=== PATIENT | male | born 1990 | race Caucasian/White ===

== ENCOUNTER 2020-01-21 22:29 | Emergency (ER) | payer MEDICAID, SELFPAY ==
[2020-01-21 22:35] VITALS: BP 152/89; PULSE 78; RESP 16; TEMP 36.8; O2SAT 98; BMI 29.2
--- NOTE | 2020-01-21 22:54 | W.ED.WOUNDLC ---
HPI - Wound/Laceration General: Chief Complaint: Wound/Laceration Stated Complaint: finger pain Time Seen by Provider: 01/21/20 22:54 Source: patient Mode of arrival: ambulatory Limitations: no limitations History of Present Illness: HPI narrative: Patient comes in with a superficial laceration to the third finger on the right hand. Patient reports was removing some glass and accidentally cut himself with a shard of the glass. Patient's last tetanus was last year. Patient appears well. Patient appears in no acute distress. Review of Systems General: Reports: 10 or more systems reviewed and unremarkable except in HPI and below Skin/Breast: Reports: other (finger laceration) [facility] ED PFSH: Social History (Updated 01/06/20 @ 12:11 by Amber Martinez LPN) Smoking and tobacco status: former smoker Alcohol intake: never Physical Exam Const: COMMON NORMALS: no apparent distress and oriented x3 GENERAL APPEARANCE: cooperative HENMT: COMMON NORMALS: normocephalic, TM's normal bilaterally and external nose normal HEAD & SCALP: normal to inspection and normocephalic NOSE: external nose normal TYMPANIC MEMBRANE: TM's normal bilaterally MOUTH: oral and palatal mucosa normal THROAT: posterior oropharynx normal Eye: GENERAL EYE: normal appearance of both eyes Neck/C-Spine: COMMON NORMALS: full ROM Lymph: LYMPHATIC: no lymphadenopathy noted Chest: COMMONS NORMALS: inspection of chest normal Resp: COMMON NORMALS: normal respiratory effort EFFORT & INSPECTION: Yes able to speak in complete sentences Cardio: COMMON NORMALS: regular rate and regular rhythm RATE: regular rate RHYTHM: regular rhythm GI: COMMON NORMALS: non-tender : COMMON NORMALS: Yes no CVA tenderness BLADDER/KIDNEY EXAM: Yes no CVA tenderness Back/Pelvis: COMMON NORMALS: no CVA tenderness and thoracic and lumbar spine normal to inspection Extremity: COMMON NORMALS: normal to inspection Neuro: COMMON NORMALS: oriented x3 and moves all extremities Psych: COMMON NORMALS: mental status grossly normal and cooperative Skin: NARRATIVE SKIN EXAM: Superficial laceration noted to the ulnar aspect of the distal volar third finger. No foreign body was noted. No fracture was noted. Laceration was well approximated with minimal bleeding. Course Vital Signs: Vital signs: Vital Signs Temperature 98.2 F 01/21/20 22:35 Pulse Rate 78 01/21/20 22:35 Respiratory Rate 16 01/21/20 22:35 Blood Pressure 152/89 01/21/20 22:35 Pulse Oximetry 98 01/21/20 22:35 MDM - Wound/Laceration MDM Narrative: Medical decision making narrative: Patient comes in today with concerns for laceration to the third finger on the right hand. Exam of the laceration notes no foreign body or fracture of the finger. Normal tendon function. No nail damage was noted. Reviewed exam with patient recommended treatment with dressing and keeping wound clean and dry. Instructed on monitoring for infection and to return to the ER as needed. Patient reported understanding agreed to plan. Discharge Plan Discharge Patient Disposition: Home, Self-Care Clinical Impression: Superficial laceration of right hand Qualifiers: Encounter type: initial encounter Qualified Code(s): S61.411A - Laceration without foreign body of right hand, initial encounter Condition: Stable Prescriptions: No Action No Known Home Medications RF: 0 Discharge Orders: Discharge Order (Routine); Ordered 01/21/20 Ordered By: Zafar Daniel Discharge Diet: Usual diet Discharge Activity: Increase activity as tolerated Patient Instructions: Finger Laceration (ED) Activity Restrictions/Additional Instructions: keep wound clean and dry, especially for the next two days Change dressing when wet or dirty Clean wound with mild soap and water, thoroughly dry finger then redress Follow-up as needed Return to ER for increased redness, and swelling with fever Coding Level of Care Code ED Hydrology Teacher for Reji Rocha Exam Comprehensive
== END 2020-01-21 23:10 | disposition home or self-care (01) ==
PROVIDERS: Emergency Provider Nurse Practitioner Family
DX: S61.212A Laceration without foreign body of right middle finger without damage to nail, initial encounter (principal); W25.XXXA Contact with sharp glass, initial encounter; Z87.891 Personal history of nicotine dependence
CPT/HCPCS: 12345; 99281; 99282

== ENCOUNTER → 2020-05-12 08:42 | Outpatient (BNVA) | payer MEDICAID, SELFPAY | PROVIDERS: Visit Provider Psychiatry & Neurology Psychiatry | DX: F41.1 Generalized anxiety disorder (principal); F33.0 Major depressive disorder, recurrent, mild | CPT/HCPCS: 90792 ==

== ENCOUNTER → 2020-06-09 07:51 | Outpatient (BNVA) | payer MEDICAID, SELFPAY | PROVIDERS: Visit Provider Psychiatry & Neurology Psychiatry | DX: F33.0 Major depressive disorder, recurrent, mild (principal); F41.1 Generalized anxiety disorder | CPT/HCPCS: 99213 ==

== ENCOUNTER → 2020-07-02 07:42 | Outpatient (BNVA) | payer MEDICAID, SELFPAY | PROVIDERS: Visit Provider Counselor Professional | DX: F33.0 Major depressive disorder, recurrent, mild (principal); F41.1 Generalized anxiety disorder | CPT/HCPCS: 90834 ==

== ENCOUNTER → 2020-10-30 08:29 | Outpatient (BNVA) | payer OTHER, BC, SELFPAY | PROVIDERS: Visit Provider Psychiatry & Neurology Psychiatry | DX: F41.1 Generalized anxiety disorder (principal); F33.0 Major depressive disorder, recurrent, mild | CPT/HCPCS: 99213 ==

== ENCOUNTER 2021-04-29 10:29 | Emergency (ER) | payer BC, MEDICAID, SELFPAY ==
[2021-04-29 10:36] VITALS: BP 124/78; PULSE 69; RESP 18; TEMP 36.6; O2SAT 98; BMI 28.8
--- NOTE | 2021-04-29 11:57 | XR_ITS ---
WS: [id number] Abdomen series, Flat and upright 04/29/2021 Clinical Data: Abd pain Comparison: None. Findings: No free air is seen beneath the diaphragms. No abnormal intra-abdominal masses or calcifica tions are seen. There is a moderate amount of fecal material in colon gas. There are phleboliths in t he true pelvis. XR/XR abdomen min 2V [id number] Impression: Negative flat and upright films of the abdomen.
--- NOTE | 2021-04-29 11:58 | ED_ITS ---
HPI - Nausea/Vomiting/Diarrhea General: Chief complaint: Nausea/Vomiting/Diarrhea Stated complaint: ABD Time Seen by Provider: 04/29/21 11:55 History of Present Illness: HPI Narrative: This patient is a 31-year-old male who presents to the emergency department complaint nausea vomiting diarrhea and left lower quadrant abdominal pain. Patient states he has had this issue for several years that once or twice a year he will get episodes of nausea vomiting diarrhea this the first time he had any pain in his abdomen. Patient states the pain has been waxing and waning over the past 2 to 3 days. More so this morning. Patient states he is pain-free upon arrival but his abdomen Wall[place] appears to be very sore. Will do medical evaluation treat as needed MD elicited complaint: nausea, vomiting and diarrhea Onset (ago): day(s) Description of vomiting: watery Associated nausea: Yes Location of pain: LLQ Pain consistency: intermittent Severity: moderate Quality: cramping Exacerbating factors: none Relieving factors: none Associated symtoms: Reports nausea; Denies anxiety, change in vision, chest pain, dysuria, fatigue, headache(s) or palpitations Review of Systems General: Reports: 10 or more systems reviewed and unremarkable except in HPI and below Const: Denies: fever(s), chills, body aches or fatigue Eyes: Denies: change in vision or blurry vision ENMT: Denies: throat pain, hoarseness or mouth pain Card: Denies: chest pain, palpitations, irregular heart rhythm, edema, swelling of feet/ankles or lightheadedness Resp: Denies: dyspnea, productive cough, non-productive cough, wheezing or pain on inspiration GI: Reports: abdominal pain, nausea, vomiting and diarrhea : Denies: flank pain, dysuria, urinary frequency, urinary urgency or urinary hesitancy Musc: Denies: neck pain, back pain, extremity pain, extremity swelling, joint pain, joint swelling, joint redness, joint warmth or limited range of motion Skin/Breast: Denies: rash, pruritus, erythema or skin tenderness Neuro: Denies: headache(s), numbness in extremities or weakness in extremities Psych: Denies: anxiety or depression PFS ED PFSH: Medical History (Updated 04/29/21 @ 14:14 by Edison Cuellar MD) Generalized anxiety disorder Major depressive disorder Social History Smoking and tobacco status: former smoker Alcohol intake: never Current gender identity: Male Physical Exam Const: COMMON NORMALS: no acute distress, average body habitus, patient oriented x3, no limitations, healthy appearing, alert and well nourished HENMT: COMMON NORMALS: normocephalic, atraumatic, hearing grossly normal bilaterally, external ears normal, EAC's normal, TM's normal bilaterally, Normal external nose present, Normal nasal mucous membranes and turbinates present, moist oral mucous membranes, oropharynx normal, dentition normal and gingiva normal HEAD & SCALP: normocephalic and atraumatic NOSE: Normal external nose present and Normal nasal mucous membranes and turbinates present EXTERNAL EAR: Yes external ears normal EXTERNAL AUDITORY CANAL: EAC's normal TYMPANIC MEMBRANE: TM's normal bilaterally Neck/C-Spine: COMMON NORMALS: full ROM, no lymphadenopathy, supple, no meningeal signs, no JVD, Thyroid normal and No carotid bruits THYROID: Thyroid normal Chest: COMMONS NORMALS: normal inspection of the chest, normal palpation of entire chest wall, normal inspection of the breasts and normal palpation of the breasts Breast/axilla inspection: Yes normal inspection of the breasts BREAST/AXILLA PALPATION: Yes normal palpation of the breasts Resp: COMMON NORMALS: normal respiratory effort, No retractions, No use of accessory muscles, clear to auscultation bilaterally and percussion normal AUSCULTATION: clear to auscultation bilaterally PERCUSSION: percussion normal Cardio: COMMON NORMALS: no JVD, regular rate, regular rhythm, S1 normal heart sound present, S2 normal heart sound present, No gallops present (Cardio), No clicks present (Cardio), No murmurs present (Cardio), No rub (Cardio) and Peripheral pulses 2+ throughout RATE: regular rate RHYTHM: regular rhythm HEART SOUNDS: S1 normal heart sound present and S2 normal heart sound present PERIPHERAL PULSES: Peripheral pulses 2+ throughout GI: COMMON NORMALS: Normal to inspection, nondistended, normoactive bowel sounds present, Soft to palpation, non-tender, No hepatosplenomegaly present, no masses and no bruits PALPATION: Yes Soft to palpation and Yes No hepatosplenomegaly present : COMMON NORMALS: Yes no CVA tenderness BLADDER/KIDNEY EXAM: Yes no CVA tenderness Back/Pelvis: COMMON NORMALS: no CVA tenderness, thoracic and lumbar spine normal to inspection, no thoracic nor lumbar tenderness, thoraco-lumbar ROM normal and straight leg raise negative bilaterally Extremity: COMMON NORMALS: normal to inspection, full ROM, capillary refill normal, no joint enlargement, no clubbing, cyanosis or edema, no calf tenderness and no pedal edema Neuro: COMMON NORMALS: patient oriented x3 SENSORIUM/ORIENTATION: Yes alert MENINGEAL SIGNS: Yes no meningeal signs Course Reevaluation(s): Reevaluation #1: Negative evaluation in the emergency department for any acute findings. Patient is stable and is pain-free at this time. Patient is to encourage p.o. fluids and follow-up with primary care physician in 2 to 3 days. Time: 14:13 Vital Signs: Vital signs: Vital Signs Temperature 97.9 F 04/29/21 10:36 Pulse Rate 68 04/29/21 14:00 Respiratory Rate 18 04/29/21 14:00 Blood Pressure 128/69 04/29/21 14:00 Pulse Oximetry 98 04/29/21 14:00 MDM - Nausea/Vomiting/Diarrhea MDM Narrative: Medical decision making narrative: This patient is a 31-year-old male who presents to the emergency department complaint nausea vomiting diarrhea and left lower quadrant abdominal pain. Patient states he has had this issue for several years that once or twice a year he will get episodes of nausea vomiting diarrhea this the first time he had any pain in his abdomen. Patient states the pain has been waxing and waning over the past 2 to 3 days. More so this morning. Patient states he is pain-free upon arrival but his abdomen [place] appears to be very sore. Negative evaluation in the emergency department for any acute findings. Patient is stable and is pain-free at this time. Patient is to encourage p.o. fluids and follow-up with primary care physician in 2 to 3 days. Medical Records: Attestation: I reviewed the patient's medical records. Lab Data: Attestation: I reviewed the patient's lab results. Labs: Lab Results 04/29/21 04/29/21 04/29/21 Range/Units 12:02 12:02 13:20 WBC 6.8 (4.0-10.0) 10^3/ uL RBC 5.39 H (4.1-5.3) 10^6/u L Hgb 15.7 (11.7-16.6) g/dL Hct 46.9 (42.0-52.0) % MCV 87.0 (80-94) fL MCH 29.1 (28.0-34.0) pg MCHC 33.5 (30.0-36.0) g/dL RDW 13.2 (12.1-15.1) % Plt Count 256 (130-400) 10^3/c mm MPV 11.1 H (7.4-10.4) fL Neut % (Auto) 51.8 % Lymph % (Auto) 37.0 % [place] % (Auto) 8.3 % Eos % (Auto) 2.0 % Baso % (Auto) 0.6 % Neut # (Auto) 3.54 (1.8-7.7) 10^3/u L Lymph # (Auto) 2.5 (0.8-4.8) 10^3/u L [place] # (Auto) 0.6 (0.2-0.9) 10^3/u L Eos # (Auto) 0.1 (0.0-0.8) 10^3/u L Baso # (Auto) 0.0 (0.0-0.1) 10^3/u L Nucleated RBC % (a uto) 0 % Nucleated RBCs # 0.0 /100WBC Sodium 140 (136-145) mmol/L Potassium 4.5 (3.5-5.1) mmol/L Chloride 102 (98-107) mmol/L Carbon Dioxide 27 (22-29) mmol/L Anion Gap 15.5 (5-19) BUN 12 (6-20) mg/dL Creatinine 0.7 (0.7-1.2) mg/dL GFR Calculation 133.3 H (90-130) mL/min Glucose 86 (65-115) mg/dL Calculated Osmolal ity 289 (285-295) mOsm/k g Calcium 9.4 (8.5-10.5) mg/dL Total Bilirubin 0.6 (0.15-1.2) mg/dL AST 24 (0-40) U/L ALT 27 (0-41) U/L Alkaline Phosphata se 77 (40-130) IU/L Total Protein 7.9 (6.6-8.7) g/dL Albumin 4.7 (3.5-5.2) g/dL Globulin 3.2 (1.3-4.6) g/dL Lipase 26 (13-60) U/L Urine Color Yellow (Yellow) Urine Appearance Clear (CLEAR) Urine pH 7 (5-7) Ur Specific Gravit y 1.005 (1.005-1.030) Urine Protein Neg (Negative) Urine Glucose (UA) Norm (Normal) Urine Ketones Negative (Negative) Urine Blood Neg (Negative) Urine Nitrate Negative (Negative) Urine Bilirubin Neg (Negative) Urine Urobilinogen Norm (Negative) mg/dL Ur Leukocyte Darlene ase Negative (Negative) Urine RBC 0-4 H (0-2) /hpf Urine WBC 0-4 H (0-5) /hpf Ur Squamous Epith Cells Rare (0-5) /hpf Amorphous Sediment Trace /hpf Urine Bacteria Trace (NONE) /hpf Urine Mucus 1+ /hpf Imaging Data^: KUB: Attestation: I personally reviewed and interpreted this imaging study as follows: Radiologist's impression: Findings: No free air is seen beneath the diaphragms. No abnormal intra-abdominal masses or calcifications are seen. There is a moderate amount of fecal material in colon gas. There are phleboliths in the true pelvis. XR/XR abdomen min 2V [id number] Impression: Negative flat and upright films of the abdomen. Discharge Plan Discharge Patient Disposition: Home Clinical Impression: Nonspecific abdominal pain, Nausea vomiting and diarrhea Condition: Stable Prescriptions: No Action loratadine 10 mg Tablet 10 mg PO DAILY PRN (Reason: Allergy Symptoms) RF: 0 Discharge Orders: Discharge ED (Routine); Ordered 04/29/21 Ordered By: Edison Cuellar Discharge Diet: Advance as tolerated Discharge Activity: Resume usual activity Patient Instructions: Abdominal Pain (ED), Opioid Safety Activity Restrictions/Additional Instructions: Encourage p.o. fluids. Advance diet as tolerated. Nothing stronger than Pepto- Bismol to help with diarrhea. Follow-up with PCP in 2 to 3 days. Coding Level of Care Code ED Freight Claim Investigator for Reji Fwd Exam Comprehensive
[2021-04-29 12:09] LABS: Basophils % 0.6 %; Eosinophils # 0.1 10^3/uL (0.0-0.8); Hematocrit 46.9 % (42.0-52.0); Hemoglobin 15.7 g/dL (11.7-16.6); Lymphocytes # 2.5 10^3/uL (0.8-4.8); Mean Corpuscular HGB Conc 33.5 g/dL (30.0-36.0); Mean Corpuscular Hemoglobin 29.1 pg (28.0-34.0); Mean Platelet Volume 11.1 fL (7.4-10.4); Monocytes # 0.6 10^3/uL (0.2-0.9); Monocytes % 8.3 %; Neutrophils # 3.54 10^3/uL (1.8-7.7); Neutrophils % 51.8 %; Nucleated Red Blood Cells % 0 %; Platelet Count 256 10^3/cmm (130-400); Red Blood Count 5.39 10^6/uL (4.1-5.3); Red Cell Distribution Width 13.2 % (12.1-15.1); White Blood Count 6.8 10^3/uL (4.0-10.0)
[2021-04-29] MEDS: sodium chloride 0.9% 1,000 ML 999 ML IV (12:19)
[2021-04-29 12:31] LABS: Alanine Aminotransferase 27 U/L (0-41); Albumin Level 4.7 g/dL (3.5-5.2); Alkaline Phosphatase 77 IU/L (40-130); Aspartate Amino Transferase 24 U/L (0-40); Blood Urea Nitrogen 12 mg/dL (6-20); Calcium 9.4 mg/dL (8.5-10.5); Carbon Dioxide 27 mmol/L (22-29); Chloride 102 mmol/L (98-107); Globulin 3.2 g/dL (1.3-4.6); Glomerular Filtration Rate 133.3 mL/min (90-130); Glucose 86 mg/dL (65-115); Lipase 26 U/L (13-60); Osmolality Calculated 289 mOsm/kg (285-295); Sodium 140 mmol/L (136-145); Total Bilirubin 0.6 mg/dL (0.15-1.2); Total Protein 7.9 g/dL (6.6-8.7)
[2021-04-29 12:35] LABS: Anion Gap 15.5 (5-19); Potassium 4.5 mmol/L (3.5-5.1)
[2021-04-29 12:42] VITALS: BP 137/76; PULSE 65; RESP 16; O2SAT 100
[2021-04-29 13:18] VITALS: BP 123/79; PULSE 84; RESP 18; O2SAT 98
[2021-04-29 14:00] VITALS: BP 128/69; PULSE 68; RESP 18; O2SAT 98
[2021-04-29 14:07] LABS: Bilirubin Urine Neg (Negative); Blood Urine Neg (Negative); Glucose Urine UA Norm (Normal); Ketones Urine Negative (Negative); Leukocyte Esterase Urine Negative (Negative); Nitrate Urine Negative (Negative); Protein Urine Neg (Negative); Specific Gravity, Urine 1.005 (1.005-1.030); Urine Appearance Clear (CLEAR); Urine Color Yellow (Yellow); Urobilinogen Urine Norm (Negative); pH Urine 7 (5-7)
[2021-04-29 14:11] LABS: Bacteria Urine TRACE /hpf; RBC Urine 0-4 /hpf (0-2); Squamous Epithelial Cell Urine RARE /hpf (0-5); WBC Urine 0-4 /hpf (0-5)
[2021-04-29 14:12] LABS: Add Urine Culture? No; Amorphous Sediment Urine TRACE /hpf; Mucus Urine 1+ /hpf
[2021-04-29 14:40] VITALS: BP 126/66; PULSE 69; RESP 18; O2SAT 98
== END 2021-04-29 14:43 | disposition home or self-care (01) ==
PROVIDERS: Physician Assistant; Emergency Provider Emergency Medicine
DX: R11.2 Nausea with vomiting, unspecified (principal); R10.9 Unspecified abdominal pain; R19.7 Diarrhea, unspecified; Z87.891 Personal history of nicotine dependence
CPT/HCPCS: 74019; 80053; 81001; 83690; 85025; 96360; 99283; J7030

== ENCOUNTER → 2021-05-11 16:16 | Outpatient (BNVA) | payer BC, MEDICAID, SELFPAY | PROVIDERS: Visit Provider Nurse Practitioner Family | DX: J06.9 Acute upper respiratory infection, unspecified (principal); Z20.822 Contact with and (suspected) exposure to COVID-19 | CPT/HCPCS: 87635 ==

== ENCOUNTER → 2021-06-01 16:18 | Outpatient (BNVA) | payer BC, MEDICAID, SELFPAY | PROVIDERS: Visit Provider Nurse Practitioner Family | DX: J06.9 Acute upper respiratory infection, unspecified (principal); Z20.822 Contact with and (suspected) exposure to COVID-19 | CPT/HCPCS: 87426 ==

== ENCOUNTER → 2021-06-02 10:46 | Outpatient (BNVA) | payer BC, MEDICAID, SELFPAY | PROVIDERS: Visit Provider Nurse Practitioner | DX: J02.9 Acute pharyngitis, unspecified (principal) | CPT/HCPCS: 87070; 87880 ==

== ENCOUNTER → 2021-08-03 11:38 | Outpatient (BNVA) | payer BC, MEDICAID, SELFPAY | PROVIDERS: Visit Provider Registered Nurse Neonatal Intensive Care | DX: N39.0 Urinary tract infection, site not specified (principal) | CPT/HCPCS: 81000 ==

== ENCOUNTER → 2021-09-07 08:14 | Outpatient (BNVA) | payer BC, MEDICAID, SELFPAY | PROVIDERS: Visit Provider Nurse Practitioner | DX: Z20.822 Contact with and (suspected) exposure to COVID-19 (principal) | CPT/HCPCS: 87635 ==

== ENCOUNTER 2021-10-03 19:25 | Emergency (ER) | payer BC, MEDICAID, SELFPAY ==
--- NOTE | 2021-10-03 19:47 | XRR_ITS ---
PROCEDURE INFORMATION: Exam: XR Right Ankle Exam date and time: 10/03/2021 7:47 PM Age: 31 years old Clinical indication: Right; Patient HX: C/O RT ankle pain just superior to joint. No known injury. 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 Has caldwell splints chronic TECHNIQUE: Imaging protocol: XR Right ankle. Views: 3 or more views. COMPARISON: No relevant prior studies available. FINDINGS: Bones/joints: Osseous structures are intact. Negative for fracture. Joint spaces are preserved. Soft tissues: Normal. XR/XR ankle RT min 3V* [id number] IMPRESSION: No acute findings.
[2021-10-03 20:29] VITALS: BP 138/87; PULSE 104; TEMP 36.4; O2SAT 99; BMI 29.9
--- NOTE | 2021-10-03 21:23 | W.ED.EXTPRO ---
HPI - Extremity Problem General: Chief complaint: Extremity Injury, Lower Stated complaint: Rt Ankel Tendon Pain Time Seen by Provider: 10/03/21 20:43 History of Present Illness: HPI Narrative: Patient is a 31-year-old male that comes to the ED with right ankle pain. Patient denies any acute trauma or injury to cause pain. Pain started yesterday. He says he works at [employer] and is up moving around and walking around a lot. Pain is located in the anterior aspect of right ankle. He says it hurts whenever he moves foot up and down. Associated symptoms: Deny chest pain, fever(s) or rash Review of Systems Const: Denies: fever(s), chills or fatigue Eyes: Denies: change in vision or eye discomfort ENMT: Denies: throat pain, odynophagia, nasal discharge or nasal congestion Card: Denies: chest pain, palpitations, edema, swelling of feet/ankles, dyspnea on exertion or orthopnea Resp: Denies: dyspnea, productive cough or non-productive cough GI: Denies: abdominal pain, nausea, vomiting, diarrhea, constipation or hematochezia : Denies: flank pain, difficulty urinating, dysuria or hematuria Musc: Reports: extremity pain (right ankle) and limited range of motion (pain with dorsal flexion of right foot); Denies: neck pain, back pain or extremity swelling Skin/Breast: Denies: rash or new lesions Neuro: Denies: headache(s), numbness in extremities or weakness in extremities PFS ED PFSH: Medical History Generalized anxiety disorder Major depressive disorder Social History Alcohol intake: never Current gender identity: Male Physical Exam Const: COMMON NORMALS: no acute distress, patient oriented x3, healthy appearing and alert HENMT: COMMON NORMALS: normocephalic HEAD & SCALP: normocephalic MOUTH: Normal oral and palatal mucosa present THROAT: posterior oropharynx normal and uvula midline Neck/C-Spine: COMMON NORMALS: supple GENERAL: Yes normal visual inspection Resp: COMMON NORMALS: normal respiratory effort, No retractions, No use of accessory muscles and clear to auscultation bilaterally AUSCULTATION: clear to auscultation bilaterally Cardio: COMMON NORMALS: regular rate, regular rhythm, S1 normal heart sound present, S2 normal heart sound present, No gallops present (Cardio), No clicks present (Cardio), No murmurs present (Cardio) and Peripheral pulses 2+ throughout RATE: regular rate RHYTHM: regular rhythm HEART SOUNDS: S1 normal heart sound present and S2 normal heart sound present PERIPHERAL PULSES: Peripheral pulses 2+ throughout GI: COMMON NORMALS: Normal to inspection, nondistended, normoactive bowel sounds present, Soft to palpation, non-tender and no masses PALPATION: Yes Soft to palpation : COMMON NORMALS: Yes no CVA tenderness BLADDER/KIDNEY EXAM: Yes no CVA tenderness Back/Pelvis: COMMON NORMALS: no CVA tenderness Extremity: GENERAL: Yes normal exam except as noted RIGHT LOWER EXTREMITY: Yes foot & digits Right ankle: Yes inspection (No visible deformity, ecchymosis or swelling seen.), Yes palpation (Tenderness over anterior aspect of ankle-Talar dome), Yes ROM (pain with dorsal flexion) and Yes neurovascular exam (Intact) Neuro: COMMON NORMALS: patient oriented x3 and moves all extremities SENSORIUM/ORIENTATION: Yes alert Skin: GENERAL SKIN EXAM: dry skin Course Vital Signs: Vital signs: Vital Signs Temperature 97.5 F L 10/03/21 20:29 Pulse Rate 104 H 10/03/21 20:29 Blood Pressure 138/87 10/03/21 20:29 Pulse Oximetry 99 10/03/21 20:29 MDM - Extremity (Nontraumatic) MDM Narrative: Medical decision making narrative: Patient is a 31-year-old male comes to the ED with right ankle pain. X-ray of right ankle showed no acute fractures or findings. Patient's right ankle is neurovascular tact and has some tenderness to palpation over the anterior aspect of ankle over talar dome. Pain with dorsiflexion. Patient was diagnosed with ankle sprain and strain and discharged home with some crutches. Told to ice, rest and elevate right foot to help with symptoms. Use crutches and limit weightbearing for the next 2 to 3 days then advance as tolerated. Return to ED precautions given. Patient was told to follow-up with PCP in 7 to 10 days for reevaluation. He was sent home with a prescription for ibuprofen 800 mg tablets. Patient understood and agree with plan. Imaging Data^: Xray Ortho: Attestation: I personally reviewed and interpreted this imaging study as follows: Radiologist's impression: [address] [place] [address] XRay Report Signed Patient: Vito Jain Unit #: [id number] : 1990 Age/Sex: 31 / M ADM Date: 10/03/21 Loc: ER Room/Bed: Attending Dr: Ordering Provider/Ordering MD: Clint Nunez Date of Service: 10/03/21 Procedure(s): XR ankle RT min 3V* [id number] Accession Number(s): [id number] Report Number: [id number] PROCEDURE INFORMATION: Exam: XR Right Ankle Exam date and time: 10/03/2021 7:47 PM Age: 31 years old Clinical indication: Right; Patient HX: C/O RT ankle pain just superior to joint. No known injury. 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 Has caldwell splints chronic TECHNIQUE: Imaging protocol: XR Right ankle. Views: 3 or more views. COMPARISON: No relevant prior studies available. FINDINGS: Bones/joints: Osseous structures are intact. Negative for fracture. Joint spaces are preserved. Soft tissues: Normal. XR/XR ankle RT min 3V* [id number] IMPRESSION: No acute findings. Dictated By: Duc March DO Signed By: Duc March DO Signed Date/Time: 10/03/212116 DD/ 46 Discharge Plan Discharge Patient Disposition: Home Clinical Impression: Ankle sprain and strain Condition: Stable Prescriptions: New ibuprofen 800 mg tablet 800 mg PO Q8H PRN (Reason: pain) Qty: 20 RF: 0 No Action fluticasone propionate [Flonase Allergy Relief] 50 mcg/actuation spray,suspension 1 spray intranasal DAILY RF: 0 clotrimazole 1 % cream 1 applic topical BID 14 Days Qty: 45 RF: 0 loratadine 10 mg Tablet 10 mg PO DAILY PRN (Reason: Allergy Symptoms) RF: 0 Discharge Orders: Discharge ED (Routine); Ordered 10/03/21 Ordered By: Clint Nunez Discharge Diet: Regular Discharge Activity: Limit activity as instructed and Use walker/crutches as instructed Patient Instructions: Ankle Sprain (ED) Activity Restrictions/Additional Instructions: Follow-up with medical provider as directed in 7 to 10 days reevaluation. For the next 2 days use crutches and limit any weightbearing to allow for your right ankle to heal. Elevate and apply cold pack on ankle as well to help with symptoms. Take medications as prescribed. Return to the ER or your medical provider if condition worsens. Please read and understand discharge instructions. Thank you for choosing [facility] for your healthcare needs today. Please realize this is an emergency room and that we are providing you with a medical screening exam and this may not be complete and all inclusive of all the testing and or work up that you may need to determine your ailment or severity of your illness. It is very important that you follow up as instructed or that you return to the Emergency Department should you have concerns or if your condition changes or worsens in any way. Stand Alone Forms: Work/School Release Coding Level of Care Code ED Senior Attorney for Reji Rocha Exam Comprehensive
[2021-10-03] MEDS: ketorolac 60 mg/2 mL INJ IM (21:42)
== END 2021-10-03 22:02 | disposition home or self-care (01) ==
PROVIDERS: Emergency Provider Physician Assistant
DX: S93.401A Sprain of unspecified ligament of right ankle, initial encounter (principal); S96.911A Strain of unspecified muscle and tendon at ankle and foot level, right foot, initial encounter; X58.XXXA Exposure to other specified factors, initial encounter
CPT/HCPCS: 73610; 96372; 99283; E0114; J1885

== ENCOUNTER → 2022-01-25 14:59 | Outpatient (BNVA) | payer OTHER, BC, MEDICAID, SELFPAY | PROVIDERS: Visit Provider Family Medicine | DX: Z76.89 Persons encountering health services in other specified circumstances (principal); G47.00 Insomnia, unspecified; F41.1 Generalized anxiety disorder; K21.9 Gastro-esophageal reflux disease without esophagitis | CPT/HCPCS: 80053; 84443; 85025 ==

== ENCOUNTER 2022-06-16 21:20 | Emergency (ER) | payer OTHER, BC, MEDICAID, SELFPAY ==
--- NOTE | 2022-06-16 21:25 | ECG_ITS ---
[facility] Test Date: 2022-06-16 Pat Name: Vito Jain Department: Room: Gender: Male Information Systems Security Officer: : 1990 Requested By: Mani Ga Order Number: [id number] Nina MD: Ava Landin M.D. Measurements Intervals [place] Rate: 72 P: 48 GA: 144 QRS: 42 QRSD: 100 T: 34 QT: 347 QTc: 381 Interpretive Statements SINUS RHYTHM POSSIBLE RIGHT VENTRICULAR CONDUCTION DELAY [RSR (QR) IN V1/V2] No previous ECG available for comparison Electronically Signed On 06-17-2022 15:38:48 CDT by Ava Landin M.D. [id number] f
--- NOTE | 2022-06-16 21:25 | XRR_ITS ---
PROCEDURE INFORMATION: Exam: XR Chest Exam date and time: 06/16/2022 9:28 PM Age: 32 years old Clinical indication: Angina; Additional info: Cp TECHNIQUE: Imaging protocol: Radiologic exam of the chest. Views: 1 view. COMPARISON: CR XR abdomen min 2V [id number] 04/29/2021 12:13 PM FINDINGS: Lungs: Unremarkable. No consolidation. Pleural spaces: Unremarkable. No pleural effusion. No pneumothorax. Heart/Mediastinum: Unremarkable. No cardiomegaly. Bones/joints: Unremarkable. XR/XR chest 1V portable [id number] IMPRESSION: No acute findings.
--- NOTE | 2022-06-16 21:25 | CTR_ITS ---
PROCEDURE INFORMATION: Exam: CT Head Without Contrast Exam date and time: 06/16/2022 9:37 PM Age: 32 years old Clinical indication: Patient HX: C/O dizziness TECHNIQUE: Imaging protocol: Computed tomography of the head without contrast. Radiation optimization: All CT scans at this facility use at least one of these dose optimization techniques: automated exposure control; mA and/or kV adjustment per patient size (includes targeted exams where dose is matched to clinical indication); or iterative reconstruction. COMPARISON: No relevant prior studies available. RADIATION DOSE METRICS: Total DLP (mGy-cm): 1004.18 FINDINGS: Brain: Normal. No hemorrhage. Unremarkable white matter. No mass effect. Cerebral ventricles: No ventriculomegaly. Paranasal sinuses: Visualized sinuses are unremarkable. No fluid levels. Mastoid air cells: Visualized mastoid air cells are well aerated. Bones/joints: Unremarkable. No acute fracture. Soft tissues: Unremarkable. CT/CT head wo con* [id number] IMPRESSION: No acute intracranial abnormality.
[2022-06-16 21:26] VITALS: BP 165/100; PULSE 70; RESP 16; O2SAT 100; BMI 29.1
--- NOTE | 2022-06-16 21:26 | W.ED.CHESTPA ---
HPI - Chest Pain General: Chief Complaint: Chest Pain Stated Complaint: cp,dizzy, Headache Time Seen by Provider: 06/16/22 21:23 Source: patient Mode of arrival: ambulatory Limitations: no limitations History of Present Illness: 32-year-old male who has a history of anxiety states he has had COVID roughly a month ago he states that over the last 1 to 2 weeks he has been having intermittent chest pains with some shortness of breath along with some dizziness he states he is felt anxious overall this and has been seeing spots at times. He states that currently he is feeling anxious having some left chest pain denies any headaches denies any fever denies any worsening improving factors. Associated symptoms: Deny abdominal pain, dyspnea, fever(s), nausea or vomiting Review of Systems Const: Denies: fever(s), chills, body aches or change in appetite Eyes: Denies: blurry vision or eye discomfort ENMT: Denies: throat pain or dental pain Card: Reports: chest pain Resp: Denies: dyspnea GI: Denies: abdominal pain, nausea, vomiting or diarrhea : Denies: dysuria Musc: Denies: neck pain or back pain Skin/Breast: Denies: rash Neuro: Reports: dizziness Psych: Reports: anxiety Anjum/Lymph: Denies: easy bruising All/Imm: Denies: urticaria PFSH ED PFSH: Medical History (Updated 06/16/22 @ 22:25 by Mani Ga MD) Generalized anxiety disorder Major depressive disorder Social History Smoking and tobacco status: former smoker Alcohol intake: current Alcohol intake frequency: holidays/special occasions only Current gender identity: Male Physical Exam Const: COMMON NORMALS: no acute distress, patient oriented x3 and healthy appearing HENMT: COMMON NORMALS: normocephalic and atraumatic HEAD & SCALP: normocephalic and atraumatic Eye: COMMON NORMALS: Equal, round and reactive pupils present and EOMs intact bilaterally PUPIL: Yes Equal, round and reactive pupils present Neck/C-Spine: COMMON NORMALS: full ROM and supple Chest: COMMONS NORMALS: normal inspection of the chest and normal palpation of entire chest wall Resp: COMMON NORMALS: normal respiratory effort, No retractions, No use of accessory muscles and clear to auscultation bilaterally AUSCULTATION: clear to auscultation bilaterally Cardio: COMMON NORMALS: regular rate, regular rhythm and No murmurs present (Cardio) RATE: regular rate RHYTHM: regular rhythm GI: COMMON NORMALS: Normal to inspection, nondistended, normoactive bowel sounds present, Soft to palpation, non-tender and no masses PALPATION: Yes Soft to palpation Extremity: COMMON NORMALS: normal to inspection and full ROM Neuro: COMMON NORMALS: patient oriented x3, moves all extremities and no focal motor deficits Psych: COMMON NORMALS: mental status grossly normal, Normal thought process present and cooperative THOUGHT PROCESS: Normal thought process present Skin: COMMON NORMALS: no rashes or lesions noted and no wounds GENERAL SKIN EXAM: no rashes or lesions noted Course Vital Signs: Vital signs: Vital Signs Temperature 98.0 F 06/16/22 21:29 Pulse Rate 70 06/16/22 21:26 Respiratory Rate 16 06/16/22 21:26 Blood Pressure 165/100 06/16/22 21:26 Pulse Oximetry 100 06/16/22 21:26 Oxygen Delivery Me thod 06/16/22 21:26 MDM - Chest Pain Medical Decision Making Patient presents for chest pains and headaches has been intermittent in nature he is well-appearing here troponin D-dimer and head CT are all normal he is stable for discharge he is to follow-up with PCP and return if worsening he understands and agrees to plan. Lab Data : 06/16/22 21:32 06/16/22 21:32 Radiology Impressions Chest X-Ray 06/16/22 21:25 IMPRESSION: No acute findings. Head CT 06/16/22 21:25 IMPRESSION: No acute intracranial abnormality. Laboratory Results WBC 9.0 10^3/uL (4.0-10.0) 06/16/22 21:32 RBC 5.13 10^6/uL (4.1-5.3) 06/16/22 21:32 Hgb 14.5 g/dL (11.7-16.6) 06/16/22 21:32 Hct 43.3 % (42.0-52.0) 06/16/22 21:32 MCV 84.4 fl (80-94) 06/16/22 21:32 MCH 28.3 pg (28.0-34.0) 06/16/22 21:32 MCHC 33.5 g/dL (30.0-36.0) 06/16/22 21:32 RDW 13.2 % (12.1-15.1) 06/16/22 21:32 Plt Count 231 10^3/cmm (130-400) 06/16/22 21:32 MPV 10.9 fL (7.4-10.4) H 06/16/22 21:32 Neut % (Auto) 47.6 % 06/16/22 21: Lymph % (Auto) 42.0 % 06/16/22 21:32 Alfalfa % (Auto) 7.4 % 06/16/22 21:32 Eos % (Auto) 2.4 % 06/16/22 21: Baso % (Auto) 0.4 % 06/16/22 21: Neut # (Auto) 4.27 10^3/uL (1.8-7.7) 06/16/22 21:32 Lymph # (Auto) 3.8 10^3/uL (0.8-4.8) 06/16/22 21:32 Alfalfa # (Auto) 0.7 10^3/uL (0.2-0.9) 06/16/22 21:32 Eos # (Auto) 0.2 10^3/uL (0.0-0.8) 06/16/22 21: Baso # (Auto) 0.0 10^3/uL (0.0-0.1) 06/16/22 21:32 Nucleated RBC % (auto) 0 % 06/16/22 21: Nucleated RBCs # 0.0 /100WBC 06/16/22 21:32 D-Dimer 0.49 ug/mIFEU (0-0.59) 06/16/22 21:32 Sodium 139 mmol/L (136-145) 06/16/22 21:32 Chloride 101 mmol/L (98-107) 06/16/22 21: Carbon Dioxide 28 mmol/L (22-29) 06/16/22 21:32 BUN 15 mg/dL (6-20) 06/16/22 21:32 Creatinine 0.9 mg/dL (0.7-1.2) 06/16/22 21:32 GFR Calculation 99.1 mL/min (90-130) 09/01/22 21:32 Glucose 114 mg/dL (65-115) 06/16/22 21:32 Calculated Osmolality 290 mOsm/kg (285-295) 06/16/22 21:32 Calcium 10.1 mg/dL (8.5-10.5) 06/16/22 21:32 Total Bilirubin 0.5 mg/dL (0.15-1.2) 06/16/22 21:32 AST 26 U/L (0-40) 06/16/22 21:32 ALT 34 U/L (0-41) 06/16/22 21:32 Alkaline Phosphatase 70 U/L (40-130) 06/16/22 21:32 Troponin T Baseline 6 ng/L (0-15) 06/16/22 21:32 Total Protein 7.3 g/dL (6.6-8.7) 06/16/22 21:32 Albumin 4.6 g/dL (3.5-5.2) 06/16/22 21:32 Globulin 2.7 g/dL (1.3-4.6) 06/16/22 21:32 EKG Data EKG 1: I personally reviewed and interpreted this EKG as follows: EKG interpretation date: 06/16/22 EKG interpretation time: 21:26 Interpretation: nsr hr [address] or t wave abnormalities qrs 100 qtc 371 Discharge Plan Discharge Patient Disposition: Home Clinical Impression: Chest pain, Headache Condition: Stable Prescriptions: No Action fluticasone propionate [Flonase Allergy Relief] 50 mcg/actuation spray,suspension 1 spray intranasal DAILY Rx Instructions: administer into each nostril hydroxyzine HCl 25 mg tablet 25 mg PO .q6 PRN (Reason: anxiety attacks) Qty: 30 0RF loratadine 10 mg Tablet 10 mg PO DAILY PRN (Reason: Allergy Symptoms) Discharge Orders: Discharge ED (Routine); Ordered 06/16/22 Ordered By: Mani Ga Referrals: Satya Modi DO [Primary Care Provider] - 1-3 days Discharge Diet: Advance as tolerated Discharge Activity: Resume usual activity Patient Instructions: Chest Pain (ED) Coding Level of Care Code ED Immigration Case Worker for Chg Fwd Exam Comprehensive
[2022-06-16 21:29] VITALS: TEMP 36.7
[2022-06-16] MEDS: LORazepam 2 mg Tablet PO (21:45)
[2022-06-16 22:03] LABS: D Dimer 0.49 ug/mIFEU (0-0.59)
[2022-06-16 22:06] LABS: Troponin(5th) Baseline 6 ng/L (0-15)
[2022-06-16 22:09] LABS: Alanine Aminotransferase 34 U/L (0-41); Albumin Level 4.6 g/dL (3.5-5.2); Alkaline Phosphatase 70 U/L (40-130); Aspartate Amino Transferase 26 U/L (0-40); Blood Urea Nitrogen 15 mg/dL (6-20); Calcium 10.1 mg/dL (8.5-10.5); Carbon Dioxide 28 mmol/L (22-29); Globulin 2.7 g/dL (1.3-4.6); Glomerular Filtration Rate 99.1 mL/min (90-130); Glucose 114 mg/dL (65-115); Total Bilirubin 0.5 mg/dL (0.15-1.2); Total Protein 7.3 g/dL (6.6-8.7)
[2022-06-16 22:19] LABS: Basophils % 0.4 %; Eosinophils # 0.2 10^3/uL (0.0-0.8); Eosinophils % 2.4 %; Hematocrit 43.3 % (42.0-52.0); Hemoglobin 14.5 g/dL (11.7-16.6); Lymphocytes # 3.8 10^3/uL (0.8-4.8); Mean Corpuscular HGB Conc 33.5 g/dL (30.0-36.0); Mean Corpuscular Hemoglobin 28.3 pg (28.0-34.0); Mean Corpuscular Volume 84.4 fl (80-94); Mean Platelet Volume 10.9 fL (7.4-10.4); Monocytes # 0.7 10^3/uL (0.2-0.9); Monocytes % 7.4 %; Neutrophils # 4.27 10^3/uL (1.8-7.7); Neutrophils % 47.6 %; Nucleated Red Blood Cells % 0 %; Platelet Count 231 10^3/cmm (130-400); Red Blood Count 5.13 10^6/uL (4.1-5.3); Red Cell Distribution Width 13.2 % (12.1-15.1)
[2022-06-16 22:35] VITALS: BP 117/80; PULSE 68; RESP 18; O2SAT 99
[2022-06-16 22:56] LABS: Chloride 99 mmol/L (98-107); Osmolality Calculated 286 mOsm/kg (285-295); Sodium 137 mmol/L (136-145)
[2022-06-16 22:57] LABS: Anion Gap 13.8 (5-19); Potassium 3.8 mmol/L (3.5-5.1)
== END 2022-06-16 22:36 | disposition home or self-care (01) ==
PROVIDERS: Emergency Provider Emergency Medicine; PCP Family Medicine
DX: R07.9 Chest pain, unspecified (principal); R51.9 Headache, unspecified; Z87.891 Personal history of nicotine dependence
CPT/HCPCS: 70450; 71045; 80053; 84484; 85025; 85378; 93005; 99285

== ENCOUNTER 2022-10-11 06:41 | Outpatient (CLI) | payer OTHER, BC, MEDICAID, SELFPAY ==
--- NOTE | 2022-10-11 07:00 | US_ITS ---
WS: [id number] RIGHT UPPER QUADRANT ULTRASOUND HISTORY: RUQ pain, post-prandial abdominal pain, nausea. COMPARISON: None available. Liver: 15.3 cm in length. Normal size liver. Coarsened echotexture and heterogeneity throughout the l iver. No areas of increased vascularity. Suspect hepatic steatosis with focal areas of fatty sparing. Portal Vein: Not well visualized. Gallbladder: Normally distended gallbladder with no stones or wall thickening. CBD: 0.4 cm Pancreas: Poorly visualized. Right kidney: 12.2 cm in length. Normal size and echogenicity. No hydronephrosis or mass. Aorta and IVC: Unremarkable abdominal aorta and IVC. No ascites. US/US abdomen limited [id number] IMPRESSION: 1. Normal gallbladder. 2. Hepatic steatosis with focal areas of sparing. Liver is mildly heterogeneou s. Favor all these changes are related to hepatic steatosis. If there is any co ncern for metastatic disease consider CT of the abdomen and pelvis with IV and oral contrast.
== END 2022-10-11 06:42 | disposition home or self-care (01) ==
LOC: RAD 06:41
PROVIDERS: PCP Family Medicine; Visit Provider Family Medicine
DX: R10.11 Right upper quadrant pain (principal); R11.0 Nausea; K76.0 Fatty (change of) liver, not elsewhere classified
CPT/HCPCS: 76705

== ENCOUNTER 2022-10-20 14:35 | Outpatient (RCR) | payer OTHER, BC, MEDICAID, SELFPAY | END 2022-11-15 23:59 | disposition home or self-care (01) | LOC: SPT 14:35 | PROVIDERS: PCP Family Medicine; Visit Provider Family Medicine | DX: M54.2 Cervicalgia (principal); M62.838 Other muscle spasm | CPT/HCPCS: 97110; 97162; 97530; G0283 ==

== ENCOUNTER 2022-11-16 06:00 | Outpatient (RCR) | payer BC, MEDICAID, SELFPAY | END 2022-12-13 23:59 | disposition home or self-care (01) | LOC: SPT 06:00 | PROVIDERS: PCP Family Medicine; Visit Provider Family Medicine | DX: M54.2 Cervicalgia (principal); M62.838 Other muscle spasm | CPT/HCPCS: 97110 ==

== ENCOUNTER → 2023-05-15 11:21 | Outpatient (BNVA) | payer BC, MEDICAID, SELFPAY | PROVIDERS: PCP Family Medicine; Visit Provider Family Medicine | DX: H43.399 Other vitreous opacities, unspecified eye (principal); H53.8 Other visual disturbances; G47.10 Hypersomnia, unspecified; R06.81 Apnea, not elsewhere classified; R53.83 Other fatigue | CPT/HCPCS: 85025 ==

== ENCOUNTER 2023-06-27 20:00 | Outpatient (CLI) | payer BC, MEDICAID, SELFPAY | END 2023-06-27 20:01 | disposition home or self-care (01) | LOC: SLEEP 06-28 06:08 | PROVIDERS: PCP Family Medicine; Visit Provider Family Medicine | DX: G47.33 Obstructive sleep apnea (adult) (pediatric) (principal); G47.10 Hypersomnia, unspecified | CPT/HCPCS: 95810 ==

== ENCOUNTER → 2023-08-21 07:26 | Outpatient (BNVA) | payer MEDICAID, SELFPAY | PROVIDERS: PCP Family Medicine; Visit Provider Nurse Practitioner Family | DX: R50.9 Fever, unspecified (principal); J06.9 Acute upper respiratory infection, unspecified | CPT/HCPCS: 87400; 87426 ==

== ENCOUNTER 2023-08-22 21:37 | Emergency (ER) | payer MEDICAID, SELFPAY ==
[2023-08-22 21:43] VITALS: BP 145/97; PULSE 78; RESP 16; TEMP 36.7; O2SAT 99; BMI 31.2
[2023-08-22 22:12] LABS: Rapid Strep A Test Positive (Negative)
--- NOTE | 2023-08-22 22:31 | ED_ITS ---
HPI - URI/Sore Throat General: Chief Complaint: Upper Respiratory Infection Stated Complaint: sore throat, fever Time Seen by Provider: 08/22/23 21:50 Source: patient Mode of arrival: ambulatory Limitations: no limitations History of Present Illness: Patient presents to the emergency department today accompanied by his for evaluation treatment of acute worsening of sore throat with continued headache, body aches, and fever. Patient reports onset of symptoms a couple of days ago and was seen and evaluated urgent care yesterday. He states he was tested for COVID and influenza which were both negative. They told him it was a viral infection and encouraged [id number] symptomatic treatments. However, patient reports running fevers through the day and this evening noticed an acute worsening of pain and difficulty swallowing. He states he looked with a flashlight in the mirror and saw white spots on his tonsils. He states he has never had strep before but indicates his was diagnosed last week and treated for strep A. Review of Systems General: Reports: 10 or more systems reviewed and unremarkable except in HPI and below PFSH ED PFSH: Medical History Generalized anxiety disorder Major depressive disorder Right shoulder strain Strain of muscle, fascia and tendon at neck level, initial encounter Social History Smoking and tobacco/nicotine status: never used tobacco/nicotine Alcohol intake: current Alcohol intake frequency: holidays/special occasions only Substance/Drug Use: never Current gender identity: Male Physical Exam Const: COMMON NORMALS: no acute distress, patient oriented x3 and alert HENMT: OTHER: TMs are translucent bilaterally without erythema but bilateral bulging appreciated. EACs clear. Pharynx is moderately erythematous with bilateral tonsillar exudate present. Uvula is midline. No unilateral soft palate swelling. Airway is patent. Mucous membranes are moist. Eye: COMMON NORMALS: Equal, round and reactive pupils present, EOMs intact bilaterally and conjunctivae normal CONJUNCTIVA: Yes conjunctivae normal PUPIL: Yes Equal, round and reactive pupils present Neck/C-Spine: COMMON NORMALS: no JVD Lymph: LYMPHATIC: no lymphadenopathy noted Resp: COMMON NORMALS: normal respiratory effort, No retractions and No use of accessory muscles Cardio: COMMON NORMALS: no JVD and regular rate RATE: regular rate : COMMON NORMALS: Yes no CVA tenderness BLADDER/KIDNEY EXAM: Yes no CVA tenderness Back/Pelvis: COMMON NORMALS: no CVA tenderness, thoracic and lumbar spine normal to inspection and thoraco-lumbar ROM normal Extremity: COMMON NORMALS: normal to inspection, full ROM and no pedal edema Neuro: COMMON NORMALS: patient oriented x3 SENSORIUM/ORIENTATION: Yes alert Skin: COMMON NORMALS: no rashes or lesions noted and turgor normal GENERAL SKIN EXAM: no rashes or lesions noted and turgor normal Course Vital Signs: Vital signs: Vital Signs Temperature 98.1 F 08/22/23 21:43 Pulse Rate 78 08/22/23 21:43 Respiratory Rate 16 08/22/23 21:43 Blood Pressure 145/97 08/22/23 21:43 Pulse Oximetry 99 08/22/23 21:43 MDM - URI/Sore Throat Medical Decision Making Patient's rapid strep test is positive today. Given his physical examination kn own exposure can confirm this to be an accurate result. Patient was given first round of medications here in the emergency department tonight with a single dose of steroid provided due to the amount of discomfort he has trying to swallow. Explained to him the importance of taking medication as prescribed in its entirety. He needs to stay well-hydrated. Told him to get a new toothbrush in 72 hours. He is also given a note for his employer as he cannot return to work until he has been on antibiotics for 24 hours. Informational handout about strep a provided for his at home reference. Needs to be seen and reevaluated for any acute worsening of difficulty to swallow-especially salivary secretions or, new onset vomiting. Patient verbalized understanding and agreement to treatment plan. Differential Diagnosis Likely pharyngitis (Strep A); Unlikely upper respiratory infection, croup, otitis media, sinusitis, viral infection or influenza Lab Data Laboratory Results Group A Strep Rapid Positive (Negative) H 08/22/23 22:00 No radiology studies performed this visit Discharge Plan Discharge Patient Disposition: Home Clinical Impression: Strep pharyngitis Condition: Stable Prescriptions: New amoxicillin 500 mg capsule 500 mg PO TID 10 Days Qty: 30 0RF No Action fluticasone propionate [Flonase Allergy Relief] 50 mcg/actuation spray,suspension 1 spray intranasal DAILY Rx Instructions: administer into each nostril albuterol sulfate 90 mcg/actuation HFA aerosol inhaler 1 inh inhalation QID PRN (Reason: shortness of breath or wheezing) Qty: 8.5 3RF ibuprofen 600 mg tablet 600 mg PO Q8H PRN (Reason: pain) Qty: 30 0RF loratadine 10 mg Tablet 10 mg PO DAILY PRN (Reason: Allergy Symptoms) Discharge Orders: Discharge ED (Routine); Ordered 08/22/23 Ordered By: Melonie Carlisle Referrals: Satya Modi DO [Primary Care Provider] - Discharge Diet: Advance as tolerated Discharge Activity: Increase activity as tolerated Patient Instructions: Strep Throat - Adult Activity Restrictions/Additional Instructions: Physical examination today is suspicious for strep throat and your throat swab today confirmed strep A. This does require treatment with antibiotics to resolve. You need to be on antibiotics for 24 hours before returning to work and I will provide you a note for your employer. We treated you with some medication here tonight to help with throat pain and swelling to make it easier for you to continue taking Tylenol and ibuprofen for pain as well as your antibiotics. You need to take your full course of antibiotics and should not stop taking them-even if you are starting to feel better. You need to get a new toothbrush in 72 hours as you can re- expose and contaminate yourself again after your treatment. It will be very important that you stay well-hydrated during this time as well. You may wish to eat softer cold foods for the first day or 2 for comfort. If you develop inability to swallow-including your own salivary secretions, you have vomiting, or develop a rash you need to be seen and reevaluated again. 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
[2023-08-22] MEDS: dexamethasone 10 mg/mL INJ IM (22:38)
[2023-08-22] MEDS: ketorolac 60 mg/2 mL INJ IM (22:40)
[2023-08-22] MEDS: amoxicillin 500 mg Capsule PO (22:43)
[2023-08-22 22:46] VITALS: BP 147/91; PULSE 80; O2SAT 97
== END 2023-08-22 22:48 | disposition home or self-care (01) ==
PROVIDERS: Emergency Medicine; Emergency Provider Physician Assistant; PCP Family Medicine
DX: J02.0 Streptococcal pharyngitis (principal)
CPT/HCPCS: 87880; 96372; 99284; J1100; J1885

== ENCOUNTER → 2023-09-17 17:28 | Outpatient (BNVA) | payer MEDICAID, SELFPAY | PROVIDERS: PCP Family Medicine; Visit Provider Emergency Medicine | DX: J02.9 Acute pharyngitis, unspecified (principal) | CPT/HCPCS: 87071; 87880 ==

== ENCOUNTER → 2024-02-06 08:11 | Outpatient (BNVA) | payer MEDICAID, SELFPAY | PROVIDERS: PCP Family Medicine; Visit Provider Nurse Practitioner Family | DX: R68.89 Other general symptoms and signs (principal) | CPT/HCPCS: 87400 ==

== ENCOUNTER → 2024-03-12 18:32 | Outpatient (BNVA) | payer MEDICAID, SELFPAY | PROVIDERS: PCP Family Medicine; Visit Provider Registered Nurse Neonatal Intensive Care | DX: R30.9 Painful micturition, unspecified (principal); N20.0 Calculus of kidney | CPT/HCPCS: 81000; 87086 ==

== ENCOUNTER 2024-03-29 15:28 | Emergency (ER) | payer OTHER, SELFPAY ==
[2024-03-29 15:33] VITALS: BP 121/79; PULSE 65; RESP 14; TEMP 36.8; O2SAT 99
--- NOTE | 2024-03-29 15:45 | XRR_ITS ---
PROCEDURE INFORMATION: Exam: XR Right Ankle Exam date and time: 03/29/2024 5:56 PM Age: 34 years old Clinical indication: Injury or trauma; Fall; Other: Pain TECHNIQUE: Imaging protocol: Radiologic exam of the right ankle. Views: 3 or more views. COMPARISON: CR (LOW EXM, ) 10/03/2021 8:01 PM FINDINGS: Bones/joints: No fracture or dislocation. No significant interval change when compared to the previous study. Soft tissues: There is soft tissue swelling overlying the malleoli . XR/XR ankle RT min 3V* [id number] IMPRESSION: No acute findings.
--- NOTE | 2024-03-29 17:42 | W.ED.LOWEXIN ---
HPI - Extremity Injury (Lower) General: Chief Complaint: Extremity Injury, Lower Stated Complaint: right ankle pain Time Seen by Provider: 03/29/24 17:42 Source: patient Mode of arrival: wheelchair Limitations: no limitations History of Present Illness: Patient is a 34-year-old male who presents to ED today for evaluation of a right ankle injury that he sustained earlier today while at work. Patient states he got out of his work vehicle and twisted the right ankle. He has noticed swelling and pain to the lateral aspect. States he has not attempted weight bearing since the injury. He states this is a Worker's Comp. injury. complaint: ankle injury Onset (ago): hour(s) Injury: Right: ankle Type of Injury: inversion Place: work Severity: moderate Relieving factors: immobilization Exacerbating factors: weight bearing, movement and palpation Associated symptoms: Reports inability to bear weight Other symptoms: none Review of Systems Musc: Reports: joint pain (R ankle) and joint swelling (R ankle) Neuro: Denies: numbness in extremities or sensory changes PFS ED PFSH: Medical History Strain of muscle, fascia and tendon at neck level, initial encounter Right shoulder strain Major depressive disorder Generalized anxiety disorder Social History Smoking and tobacco/nicotine status: never used tobacco/nicotine Alcohol intake: current Alcohol intake frequency: holidays/special occasions only Substance/Drug Use: never Current gender identity: Male Physical Exam Const: COMMON NORMALS: no acute distress, no limitations, alert and well nourished Extremity: COMMON NORMALS: capillary refill normal and no calf tenderness GENERAL: Yes normal exam except as noted RIGHT LOWER EXTREMITY: Yes foot & digits Right ankle: Yes inspection (edema R lateral ankle), Yes palpation (TTP overlying R lateral malleolus) and Yes neurovascular exam (normal) Neuro: COMMON NORMALS: moves all extremities, no focal motor deficits and no sensory deficits noted SENSORIUM/ORIENTATION: Yes alert Course Vital Signs: Vital signs: Vital Signs Temperature 98.2 F 03/29/24 15:33 Pulse Rate 65 03/29/24 15:33 Respiratory Rate 14 03/29/24 15:33 Blood Pressure 121/79 03/29/24 15:33 Pulse Oximetry 99 03/29/24 15:33 Oxygen Delivery Me thod Room Air 03/29/24 15:33 MDM - Extremity Injury (Lower) Medical Decision Making XR negative. Will JASE wrap/given crutches with directions for weight bearing as tolerated. RICE therapy discussed. Follow-up with Worker's Comp. XR interpretation done by ED provider, pending radiology final review Discharge Plan Discharge Patient Disposition: Home Clinical Impression: Right ankle sprain Qualifiers: Encounter type: initial encounter Involved ligament of ankle: unspecified ligament Qualified Code(s): S93.401A - Sprain of unspecified ligament of right ankle, initial encounter Condition: Stable Prescriptions: No Action fluticasone propionate [Flonase Allergy Relief] 50 mcg/actuation spray,suspension 1 spray intranasal DAILY Rx Instructions: administer into each nostril albuterol sulfate 90 mcg/actuation HFA aerosol inhaler 1 inh inhalation QID PRN (Reason: shortness of breath or wheezing) Qty: 8.5 3RF ibuprofen 600 mg tablet 600 mg PO Q8H PRN (Reason: pain) Qty: 30 0RF cetirizine [Zyrtec] 10 mg tablet 10 mg PO DAILY PRN Discharge Orders: Discharge ED (Routine); Ordered 03/29/24 Ordered By: Maria Esther Springer Referrals: Satya Modi DO [Primary Care Provider] - Patient Instructions: Ankle Sprain (DC), RICE Therapy Activity Restrictions/Additional Instructions: As we discussed you need to follow-up with Worker's Comp. 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
[2024-03-29 18:15] VITALS: BP 129/78; PULSE 69; RESP 16; TEMP 36.8; O2SAT 100
== END 2024-03-29 18:17 | disposition home or self-care (01) ==
PROVIDERS: Emergency Provider Physician Assistant; PCP Family Medicine
DX: S93.401A Sprain of unspecified ligament of right ankle, initial encounter (principal); X50.1XXA Overexertion from prolonged static or awkward postures, initial encounter
CPT/HCPCS: 73610; 99283; E0114

== ENCOUNTER 2024-04-11 01:10 | Emergency (ER) | payer MEDICAID, SELFPAY ==
[2024-04-11 01:14] VITALS: BP 144/81; PULSE 95; RESP 16; TEMP 36.6; O2SAT 99; BMI 30.1
--- NOTE | 2024-04-11 01:31 | XRR_ITS ---
PROCEDURE INFORMATION: Exam: XR Chest Exam date and time: 04/11/2024 1:46 AM Age: 34 years old Clinical indication: Cough and dyspnea; Additional info: Cough dyspnea TECHNIQUE: Imaging protocol: Radiologic exam of the chest. Views: 1 view. COMPARISON: CR XR chest 1V portable [id number] 06/16/2022 9:28 PM FINDINGS: Lungs: Unremarkable. No consolidation. Pleural spaces: Unremarkable. No pleural effusion. No pneumothorax. Heart/Mediastinum: Unremarkable. No cardiomegaly. Bones/joints: Unremarkable. XR/XR chest 1V portable [id number] IMPRESSION: No acute findings.
--- NOTE | 2024-04-11 02:02 | ED_ITS ---
HPI - SOB/Dyspnea General: Chief Complaint: Shortness of Breath/Dyspnea Stated Complaint: Sob, throat,Stomach pain Time Seen by Provider: 04/11/24 01:23 History of Present Illness: HPI Narrative: Patient presents to the ER after waking up sleeping and coughing hard and throwing up. So much that he could not breathe for about 30 seconds. Patient thinks he may have aspirated some emesis. Patient says he is breathing better but still it hurts to take big large deep breaths. Review of Systems General: Reports: 10 or more systems reviewed and unremarkable except in HPI and below PFSH ED PFSH: Medical History Strain of muscle, fascia and tendon at neck level, initial encounter Right shoulder strain Major depressive disorder Generalized anxiety disorder Social History Smoking and tobacco/nicotine status: never used tobacco/nicotine Alcohol intake: current Alcohol intake frequency: holidays/special occasions only Substance/Drug Use: never Current gender identity: Male Physical Exam Const: COMMON NORMALS: no acute distress, average body habitus, patient oriented x3, no limitations, healthy appearing, alert and well nourished Neck/C-Spine: COMMON NORMALS: no JVD Chest: COMMONS NORMALS: normal inspection of the chest and normal palpation of entire chest wall Resp: COMMON NORMALS: normal respiratory effort, No retractions, No use of accessory muscles and clear to auscultation bilaterally AUSCULTATION: clear to auscultation bilaterally Cardio: COMMON NORMALS: no JVD, regular rate, regular rhythm, S1 normal heart sound present, S2 normal heart sound present, No gallops present (Cardio), No clicks present (Cardio), No murmurs present (Cardio) and No rub (Cardio) RATE: regular rate RHYTHM: regular rhythm HEART SOUNDS: S1 normal heart sound present and S2 normal heart sound present GI: COMMON NORMALS: Normal to inspection, nondistended, normoactive bowel sounds present, Soft to palpation, non-tender, No hepatosplenomegaly present and no masses PALPATION: Yes Soft to palpation and Yes No hepatosplenomegaly present Neuro: COMMON NORMALS: patient oriented x3 SENSORIUM/ORIENTATION: Yes alert Course Vital Signs: Vital signs: Vital Signs Temperature 97.9 F 04/11/24 01:14 Pulse Rate 95 04/11/24 01:14 Respiratory Rate 16 04/11/24 01:14 Blood Pressure 144/81 04/11/24 01:14 Pulse Oximetry 99 04/11/24 01:14 Oxygen Delivery Me thod Room Air 04/11/24 01:14 MDM - SOB/Dyspnea Medical Decision Making Chest x-ray was performed and preliminary read by myself is negative. Patient be discharged home and is to follow-up with his PCP on an as-needed basis. Differential Diagnosis Unlikely acute exacerbation of chronic obstructive airways disease, congestive heart failure, community acquired pneumonia, asthma with exacerbation or pulmonary embolism Medical Records I reviewed the patient's medical records. Lab Data I reviewed the patient's lab results. All radiology interpretation(s) finalized by discharge Discharge Plan Discharge Patient Disposition: Home Clinical Impression: Shortness of breath Vomiting Qualifiers: Vomiting type: unspecified Nausea presence: unspecified Qualified Code(s): R11.10 - Vomiting, unspecified Condition: Stable Prescriptions: No Action fluticasone propionate [Flonase Allergy Relief] 50 mcg/actuation spray,suspension 1 spray intranasal DAILY Rx Instructions: administer into each nostril albuterol sulfate 90 mcg/actuation HFA aerosol inhaler 1 inh inhalation QID PRN (Reason: shortness of breath or wheezing) Qty: 8.5 3RF ibuprofen 600 mg tablet 600 mg PO Q8H PRN (Reason: pain) Qty: 30 0RF cetirizine [Zyrtec] 10 mg tablet 10 mg PO DAILY PRN Discharge Orders: Discharge ED (Routine); Ordered 04/11/24 Ordered By: Barney Méndez Referrals: Satya Modi DO [Primary Care Provider] - 1 week Patient Instructions: Dyspnea (ED), Vomiting - Adult Activity Restrictions/Additional Instructions: An x-ray was taken in the ER and was preliminarily read by myself is negative. Your physical exam is benign. Neither 1 showed signs of aspiration or pneumonia. Please follow-up with your family practice doc within neck 7 to 10 days for further evaluation and treatment as needed. Coding Level of Care Code ED Machine Filler Shredder for Reji Rocha
== END 2024-04-11 02:14 | disposition home or self-care (01) ==
PROVIDERS: Emergency Provider Emergency Medicine; PCP Family Medicine
DX: R06.02 Shortness of breath (principal); R11.10 Vomiting, unspecified
CPT/HCPCS: 71045; 99283

== ENCOUNTER 2024-06-07 17:34 | Emergency (ER) | payer OTHER, SELFPAY ==
[2024-06-07 17:47] VITALS: BP 134/80; PULSE 86; RESP 18; TEMP 36.7; O2SAT 99
--- NOTE | 2024-06-07 18:15 | XRR_ITS ---
PROCEDURE INFORMATION: Exam: XR Left Ankle Exam date and time: 06/07/2024 6:42 PM Age: 34 years old Clinical indication: Injury or trauma; Fall; Sprain or strain; Ankle; Left; Additional info: Injury, felt pop after falling out of truck today, swelling TECHNIQUE: Imaging protocol: Radiologic exam of the left ankle. Views: 3 or more views. COMPARISON: No relevant prior studies available. FINDINGS: Bones/joints: No acute fracture identified. Soft tissues: Soft tissue swelling along the lateral aspect of the ankle. XR/XR ankle LT min 3V* [id number] IMPRESSION: 1. Soft tissue swelling along the lateral aspect of the ankle. 2. No acute fracture identified.
--- NOTE | 2024-06-07 18:34 | W.ED.EXTPRO ---
HPI - Extremity Problem General: Chief complaint: Extremity Injury, Lower Stated complaint: L ankle injury Time Seen by Provider: 06/07/24 18:27 Source: patient Mode of arrival: wheelchair Limitations: no limitations History of Present Illness: Patient is a 34-year-old male who presents the emergency department after left ankle injury prior to arrival. 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 He has no prior injuries or surgical history to that foot. Weightbearing has not been attempted due to the pain. Primarily the pain is reported to be on the lateral aspect, and there is a good amount of swelling noted here. He denies any bruising, distal neurovascular changes, knee pain, foot pain, or other symptoms at this time. He has not taken anything for pain yet. MD Complaint: joint pain Location: left and lower extremity Radiation: none Exacerbating factors: weight bearing and walking Associated symptoms: Deny chest pain, fever(s) or rash Related Data Home Medications Medication Instructions Recorded Confirmed cetirizine 10 mg tablet (Zyrtec) 10 mg PO DAILY PRN 03/12/24 04/16/24 Previous Rx's Medication Instructions Recorded ibuprofen 600 mg tablet 600 mg PO Q8H PRN pain #30 tabs 07/25/22 albuterol sulfate 90 mcg/actuation 1 inh inhalation QID PRN shortness 02/15/23 aerosol inhaler of breath or wheezing #8.5 grams Allergies Allergy/AdvReac Type Severity Reaction Status Date / Time No Known Allergies Allergy Verified 06/07/24 17:52 Review of Systems General: Reports: 10 or more systems reviewed and unremarkable except in HPI and below Const: Denies: fever(s) or chills Card: Denies: chest pain Resp: Denies: dyspnea or productive cough GI: Denies: abdominal pain, nausea, vomiting or diarrhea : Denies: flank pain Musc: Reports: joint pain (left ankle), joint swelling (left ankle) and limited range of motion; Denies: neck pain, back pain, extremity pain, extremity swelling, joint redness, joint warmth or muscle weakness Skin/Breast: Denies: rash Neuro: Denies: headache(s), numbness in extremities or weakness in extremities PFS ED PFSH: Medical History Strain of muscle, fascia and tendon at neck level, initial encounter Right shoulder strain Major depressive disorder Generalized anxiety disorder Social History Smoking and tobacco/nicotine status: never used tobacco/nicotine Alcohol intake: current Alcohol intake frequency: holidays/special occasions only Substance/Drug Use: never Current gender identity: Male Physical Exam Const: COMMON NORMALS: no acute distress, patient oriented x3, no limitations, healthy appearing, alert and well nourished HENMT: COMMON NORMALS: normocephalic and atraumatic HEAD & SCALP: normocephalic and atraumatic Neck/C-Spine: COMMON NORMALS: full ROM, supple and no meningeal signs Resp: COMMON NORMALS: normal respiratory effort, No use of accessory muscles and clear to auscultation bilaterally AUSCULTATION: clear to auscultation bilaterally Cardio: COMMON NORMALS: regular rate and regular rhythm RATE: regular rate RHYTHM: regular rhythm Extremity: COMMON NORMALS: capillary refill normal, no joint enlargement and no clubbing, cyanosis or edema NARRATIVE EXTREMITY EXAM: Swelling noted to the lateral malleolus of the left foot. No bruising. Tender to palpation in this area. Negative ankle squeeze. Negative calcaneal squeeze. Distal neurovascular exam intact. Pulses intact. No obvious deformity. Neuro: COMMON NORMALS: patient oriented x3, moves all extremities, no focal motor deficits and no sensory deficits noted SENSORIUM/ORIENTATION: Yes alert MENINGEAL SIGNS: Yes no meningeal signs GAIT: Yes Antalgic gait present Skin: COMMON NORMALS: no rashes or lesions noted GENERAL SKIN EXAM: no rashes or lesions noted Course Vital Signs: Vital signs: Vital Signs Temperature 98.0 F 06/07/24 17:47 Pulse Rate 86 06/07/24 17:47 Respiratory Rate 18 06/07/24 17:47 Blood Pressure 134/80 06/07/24 17:47 Pulse Oximetry 99 06/07/24 17:47 Oxygen Delivery Me thod Room Air 06/07/24 17:47 MDM - Extremity (Nontraumatic) Medical Decision Making Patient presented after injuring his left foot after stepping out of a truck, has not bared weight since due to the pain. Vitals stable on arrival. Other than pain and swelling to the lateral malleolus of the left foot, no other concerning exam findings. X-ray did not demonstrate any acute fracture or dislocation that would warrant a splint at this time, and he states he has crutches at home to use as needed. We will wrap his ankle and instruct him to do RICE therapy, will give a few days off of work to recover. Return precautions given he will follow-up with primary care as needed. XR interpretation done by ED provider, pending radiology final review ED provider radiology interpretation(s): X-ray left ankle. No obvious fracture or dislocation. Discharge Plan Discharge Patient Disposition: Home Clinical Impression: Left ankle sprain Qualifiers: Encounter type: initial encounter Involved ligament of ankle: unspecified ligament Qualified Code(s): S93.402A - Sprain of unspecified ligament of left ankle, initial encounter Condition: Stable Prescriptions: No Action albuterol sulfate 90 mcg/actuation HFA aerosol inhaler 1 inh inhalation QID PRN (Reason: shortness of breath or wheezing) Qty: 8.5 3RF ibuprofen 600 mg tablet 600 mg PO Q8H PRN (Reason: pain) Qty: 30 0RF cetirizine [Zyrtec] 10 mg tablet 10 mg PO DAILY PRN Discharge Orders: Discharge ED (Routine); Ordered 06/07/24 Ordered By: Krish Leonard Referrals: Satya Modi DO [Primary Care Provider] - Discharge Diet: Usual diet Discharge Activity: Increase activity as tolerated Patient Instructions: Ankle Sprain (ED) Activity Restrictions/Additional Instructions: Crutches as needed. Rest, ice, compression, and elevation. Tylenol or ibuprofen for pain relief. Follow-up with your primary care provider and return with any new or worsening. Coding Level of Care Code ED Junior Systems Engineer for Reji Rocha
[2024-06-07] MEDS: ibuprofen 800 mg tablet PO (18:58)
[2024-06-07 19:31] VITALS: PULSE 84; RESP 16; O2SAT 96
== END 2024-06-07 19:32 | disposition home or self-care (01) ==
PROVIDERS: Emergency Provider Physician Assistant; PCP Family Medicine
DX: S93.402A Sprain of unspecified ligament of left ankle, initial encounter (principal); X50.1XXA Overexertion from prolonged static or awkward postures, initial encounter
CPT/HCPCS: 73610; 99283

== ENCOUNTER 2024-08-04 04:04 | Emergency (ER) | payer OTHER, SELFPAY ==
[2024-08-04 04:29] VITALS: BP 136/76; PULSE 74; RESP 20; TEMP 37.1; O2SAT 98; BMI 33.0
[2024-08-04] MEDS: amoxicillin 500 mg Capsule PO (05:49)
[2024-08-04 05:51] VITALS: BP 136/79; PULSE 62; O2SAT 99
--- NOTE | 2024-08-04 18:28 | W.ED.URI ---
HPI - URI/Sore Throat General: Chief Complaint: Upper Respiratory Infection Stated Complaint: sore throat, Couph Time Seen by Provider: 08/04/24 05:13 History of Present Illness: This patient is a 34-year-old white male who presents to the ER complaining of a sore throat and mild cough for the past 2 days. No fever. He is having some pain with swallowing. Related Data Home Medications Medication Instructions Recorded Confirmed cetirizine 10 mg tablet (Zyrtec) 10 mg PO DAILY PRN 03/12/24 07/08/24 Previous Rx's Medication Instructions Recorded ibuprofen 600 mg tablet 600 mg PO Q8H PRN pain #30 tabs 07/25/22 albuterol sulfate 90 mcg/actuation 1 inh inhalation QID PRN shortness 02/15/23 aerosol inhaler of breath or wheezing #8.5 grams amoxicillin 500 mg capsule 500 mg PO TID 10 days #30 caps 08/04/24 Allergies Allergy/AdvReac Type Severity Reaction Status Date / Time No Known Allergies Allergy Verified 07/08/24 13:06 Review of Systems General: Reports: 10 or more systems reviewed and unremarkable except in HPI and below ENMT: Reports: throat pain Resp: Reports: non-productive cough PFSH ED PFSH: Medical History Strain of muscle, fascia and tendon at neck level, initial encounter Right shoulder strain Major depressive disorder Generalized anxiety disorder Social History Smoking and tobacco/nicotine status: never used tobacco/nicotine Alcohol intake: current Alcohol intake frequency: holidays/special occasions only Substance/Drug Use: never Current gender identity: Male Physical Exam Const: COMMON NORMALS: no acute distress, patient oriented x3 and no limitations GENERAL APPEARANCE: cooperative and comfortable HENMT: COMMON NORMALS: normocephalic, atraumatic, Normal nasal mucous membranes and turbinates present and moist oral mucous membranes HEAD & SCALP: normal to inspection, normocephalic and atraumatic FACE & SINUS: normal facial exam NOSE: Normal nasal mucous membranes and turbinates present OTHER: Posterior pharynx erythematous. Tonsils moderately swollen. Eye: COMMON NORMALS: Equal, round and reactive pupils present, EOMs intact bilaterally and conjunctivae normal GENERAL EYE: appearance normal, both eyes and all related structures CONJUNCTIVA: Yes conjunctivae normal PUPIL: Yes Equal, round and reactive pupils present Neck/C-Spine: COMMON NORMALS: supple and no JVD Chest: COMMONS NORMALS: normal inspection of the chest Resp: COMMON NORMALS: normal respiratory effort and clear to auscultation bilaterally AUSCULTATION: clear to auscultation bilaterally Cardio: COMMON NORMALS: no JVD, regular rate, regular rhythm, No gallops present (Cardio), No murmurs present (Cardio) and No rub (Cardio) RATE: regular rate RHYTHM: regular rhythm GI: COMMON NORMALS: Normal to inspection, nondistended, normoactive bowel sounds present, Soft to palpation and non-tender AUSCULTATION: Yes normoactive bowel sounds PALPATION: Yes Soft to palpation : COMMON NORMALS: Yes no CVA tenderness BLADDER/KIDNEY EXAM: Yes no CVA tenderness Back/Pelvis: COMMON NORMALS: no CVA tenderness and thoracic and lumbar spine normal to inspection Extremity: COMMON NORMALS: normal to inspection Neuro: COMMON NORMALS: patient oriented x3 and CN's II-XII intact bilaterally Psych: COMMON NORMALS: mental status grossly normal, Normal thought process present and cooperative THOUGHT PROCESS: Normal thought process present Skin: COMMON NORMALS: no rashes or lesions noted, turgor normal and no jaundice GENERAL SKIN EXAM: no rashes or lesions noted and turgor normal Course Vital Signs: Vital signs: Vital Signs Temperature 98.8 F 08/04/24 04:29 Pulse Rate 62 08/04/24 05:51 Respiratory Rate 20 H 08/04/24 04:29 Blood Pressure 136/79 08/04/24 05:51 Pulse Oximetry 99 08/04/24 05:51 MDM - URI/Sore Throat Medical Decision Making Patient was placed on amoxicillin for pharyngitis given his first dose in the emergency department. Recommended he take Tylenol and/or Motrin for fever, aches and pains. Follow-up with primary care physician in 1 week if this is not resolved. He was discharged in stable condition. No radiology studies performed this visit Discharge Plan Discharge Patient Disposition: Home Clinical Impression: Pharyngitis Qualifiers: Pharyngitis/tonsillitis etiology: unspecified etiology Qualified Code(s): J02.9 - Acute pharyngitis, unspecified Condition: Stable Prescriptions: New amoxicillin 500 mg capsule 500 mg PO TID 10 Days Qty: 30 0RF No Action albuterol sulfate 90 mcg/actuation HFA aerosol inhaler 1 inh inhalation QID PRN (Reason: shortness of breath or wheezing) Qty: 8.5 3RF ibuprofen 600 mg tablet 600 mg PO Q8H PRN (Reason: pain) Qty: 30 0RF cetirizine [Zyrtec] 10 mg tablet 10 mg PO DAILY PRN Discharge Orders: Discharge ED (Routine); Ordered 08/04/24 Ordered By: Miko Massey Referrals: Satya Modi DO [Primary Care Provider] - Patient Instructions: Pharyngitis (ED) Coding Level of Care Code ED Bilingual Speech Language Pathologist for Reji Rocha
== END 2024-08-04 05:52 | disposition home or self-care (01) ==
PROVIDERS: Emergency Provider Emergency Medicine; PCP Family Medicine
DX: J02.9 Acute pharyngitis, unspecified (principal)
CPT/HCPCS: 99283

== ENCOUNTER 2024-08-19 10:33 | Outpatient (CLI) | payer OTHER, SELFPAY ==
--- NOTE | 2024-08-19 10:35 | XR_ITS ---
WS: [id number] XR ankle LT 2V [id number] REASON FOR EXAM: M25.572 - Pain in left ankle and joints of left foot FINDINGS: No fracture or focal bone lesion. No periosteal reaction or bone erosion. The joint spaces of the left ankle are intact and well preserved. XR/XR ankle LT 2V [id number] IMPRESSION: No significant abnormality.
== END 2024-08-19 10:34 | disposition home or self-care (01) ==
PROVIDERS: PCP Family Medicine; Visit Provider Family Medicine
DX: M25.572 Pain in left ankle and joints of left foot (principal); S99.912A Unspecified injury of left ankle, initial encounter; X58.XXXA Exposure to other specified factors, initial encounter
CPT/HCPCS: 73600

== ENCOUNTER → 2024-10-17 07:13 | Outpatient (BNVA) | payer OTHER, SELFPAY | PROVIDERS: PCP Family Medicine; Visit Provider Registered Nurse Neonatal Intensive Care | DX: R50.9 Fever, unspecified (principal) | CPT/HCPCS: 87400; 87426 ==